=== PATIENT | female | born 1935 | race Hispanic/Latino ===

== ENCOUNTER → 2018-01-11 | Outpatient (CLI) | payer MEDICARE ==
[~2018-01-11] MED LIST: ALENDRONATE SOD70 MG PO; DAILY VITE1 EACH PO; DIOVAN160 MG PO; FERROUS SULFAT325 MG PO; FOLIC ACID1 MG PO; LEVOTHYROXINE88 MCG PO; PANTOPRAZOLE SO40 MG PO
--- NOTE | 2018-01-11 12:09 | Diagnostic Imaging Report ---
PROCEDURE: Frontal and lateral views of the chest. COMPARISON: Chest radiograph 08/13/16. INDICATIONS: CHEST PAIN FINDINGS: Lines/tubes: None. Lungs: Perihilar and interstitial opacities. Prominence of bilateral gunner, likely from central vascular congestion. Mild patchy bibasilar opacities. Pleura: Small bilateral pleural effusions. No evidence of pneumothorax. Heart and mediastinum: The cardiomediastinal silhouette is unchanged. Large hiatal hernia. Atherosclerotic calcifications of the aortic arch. Bones: No acute bony abnormality. IMPRESSION: Mild pulmonary interstitial edema with small bilateral pleural effusions. Patchy opacities at the lung bases, likely atelectasis. Prominence of bilateral gunner, likely pulmonary engorgement from central vascular congestion. Large hiatal hernia. Dictated by: BETHANIE PRATT M.D. on 01/11/2018 at 12:19 Electronically approved by: BETHANIE PRATT M.D. on 01/11/2018 at 12:19
== END ==
LOC: RAD 09:24
DX: R05 Cough (principal)
CPT/HCPCS: 71046